=== PATIENT | male | born 1975 | race Caucasian/White ===

== ENCOUNTER 2025-09-29 15:04 | Inpatient (IN) | payer OTHER, SELFPAY ==
--- OUTSIDE RECORDS SUMMARY | 2025-09-28 19:24 | XMS_ITS | Encounter Summary ---
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 15.0 13.5 - 17.5 g/dL 09/28/2025 11:31 PM [facility] Hematocrit 43.6 41.0 - 53.0 % 09/28/2025 11:31 PM [facility] MCV 91.0 80.0 - 100.0 fL 09/28/2025 11:31 PM [facility] MCH 31.3(H) 27.0 - 31.0 pg 09/28/2025 11:31 PM [facility] MCHC 34.4 32.0 - 36.0 g/dL 09/28/2025 11:31 PM [facility] MPV 10.8 8.4 - 12.0 fL 09/28/2025 11:31 PM [facility] RDW-CV 13.3 11.5 - 14.5 % 09/28/2025 11:31 PM [facility] PLT 217 150 - 450 K/uL 09/28/2025 11:31 PM [facility] Neutrophils 64.0 % 09/28/2025 11:31 PM [facility] Lymphocytes 24.8 % 09/28/2025 11:31 PM [facility] Monocytes 6.4 % 09/28/2025 11:31 PM [facility] Eosinophils 3.6 % 09/28/2025 11:31 PM [facility] Basophils 0.7 % 09/28/2025 11:31 PM [facility] Imm Grans 0.5 % 09/28/2025 11:31 PM [facility] NRBC 0.0 <=0.0 /100 WBCs 09/28/2025 11:31 PM [facility] Absolute Neutrophils 7.57 1.92 - 7.60 K/uL 09/28/2025 11:31 PM [facility] Absolute Lymphocytes 2.93 0.72 - 4.10 K/uL 09/28/2025 11:31 PM [facility] Absolute Monocytes 0.75 0.16 - 1.10 K/uL 09/28/2025 11:31 PM [facility] Absolute Eosinophils 0.42 0.00 - 0.50 K/uL 09/28/2025 11:31 PM [facility] Absolute Basophils 0.08 0.00 - 0.15 K/uL 09/28/2025 11:31 PM [facility] Absolute Imm Grans 0.06 0.00 - 0.09 K/uL 09/28/2025 11:31 PM [facility] Absolute NRBC 0.00 <=0.00 K cells/uL 09/28/2025 11:31 PM [facility] Absolute Neutrophils 7.57 1.92 - 7.60 K/uL 09/28/2025 11:31 PM [facility] Comment:Automated cell count . Manual ANC may differ if performed. Diff Type Auto 09/28/2025 11:31 PM [facility] Blood (Blood) 09/28/2025 11: 07 PM EST 09/28/2025 11:13 PM EST us Filipe Scott MD LAB BLOOD BKR ORDERABLES Final Result Performing Organization Address [facility] Co de Phone Number [address] [address] * (ABNORMAL) Salicylates (09/28/2025 11:07 PM EST) Salicylates <0.3(L) 10.0 - 25.0 mg/dL 09/28/2025 11:55 PM EST [facility] Blood (Blood) 09/28/2025 11: 07 PM EST 09/28/2025 11:13 PM EST us Filipe Scott MD LAB BLOOD BKR ORDERABLES Final Result Performing Organization Address [facility] Co de Phone Number [address] [address] * Acetaminophen Level (09/28/2025 11:07 PM EST) Acetaminophen 7.9 <=25.0 ug/mL 09/28/2025 11:44 PM EST [facility] Blood (Blood) 09/28/2025 11: 07 PM EST 09/28/2025 11:13 PM EST us Filipe Scott MD LAB BLOOD BKR ORDERABLES Final Result Performing Organization Address [facility] Co de Phone Number [address] [address] * Ethanol, Blood (09/28/2025 11:07 PM EST) Ethanol <10 Negative; <11 mg/dL 09/28/2025 11:44 PM EST [facility] Blood (Blood) 09/28/2025 11: 07 PM EST 09/28/2025 11:13 PM EST us Filipe Scott MD LAB BLOOD BKR ORDERABLES Final Result [address] [address] * Magnesium (09/28/2025 11:07 PM EST) Magnesium 2.2 1.7 - 2.6 mg/dL 09/28/2025 11:44 PM [facility] Blood (Blood) 09/28/2025 11: 07 PM EST 09/28/2025 11:13 PM EST Filipe Scott MD LAB BLOOD BKR ORDERABLES Final Result Performing Organization Address City/[facility]/ZIP Co de Phone Number [address] [address] * Hepatic Panel (LFTs) (09/28/2025 11:07 PM EST) AST 17 <40 U/L 09/28/2025 11:44 PM [facility] ALT 23 <50 U/L 09/28/2025 11:44 PM [facility] Alkaline Phosphatase 93 40 - 130 U/L 09/28/2025 11:44 PM [facility] Bilirubin, Total 0.5 0.0 - 1.2 mg/dL 09/28/2025 11:44 PM [facility] Bilirubin, Direct 0.1 0.0 - 0.3 mg/dL 09/28/2025 11:44 PM [facility] Total Protein 7.2 6.4 - 8.3 g/dL 09/28/2025 11:44 PM [facility] Albumin 4.1 3.5 - 5.2 g/dL 09/28/2025 11:44 PM [facility] Globulin 3.1 1.9 - 4.1 g/dL 09/28/2025 11:44 PM [facility] Blood (Blood) 09/28/2025 11: 07 PM EST 09/28/2025 11:13 PM EST Filipe Scott MD LAB BLOOD BKR ORDERABLES Final Result [address] [address] * (ABNORMAL) Basic Metabolic Panel (BMP) (09/28/2025 11:07 PM EST) Pathologist [facility] Sodium 138 136 - 145 mmol/L 09/28/2025 11:44 PM [facility] Potassium 3.8 3.4 - 5.1 mmol/L 09/28/2025 11:44 PM [facility] Chloride 103 98 - 107 mmol/L 09/28/2025 11:44 PM [facility] CO2 25 20 - 31 mmol/L 09/28/2025 11:44 PM [facility] Anion Gap 10 3 - 17 mmol/L 09/28/2025 11:44 PM [facility] BUN 12 6 - 23 mg/dL 09/28/2025 11:44 PM [facility] Creatinine 0.70 0.60 - 1.30 mg/dL 09/28/2025 11:44 PM [facility] eGFR 113 >59 mL/min/1.7 3m2 09/28/2025 11:44 PM [facility] Comment:Estimated glomerular filtration rate calculated using the CKD-EPI refit equation. Glucose 110(H) 70 - 99 mg/dL 09/28/2025 11:44 PM [facility] Calcium 9.3 8.5 - 10.5 mg/dL 09/28/2025 11:44 PM [facility] Blood (Blood) 09/28/2025 11: 07 PM EST 09/28/2025 11:13 PM EST Filipe Scott MD LAB BLOOD BKR ORDERABLES Final Result [address] [address] * ECG 12-LEAD (09/28/2025 9:26 PM EST) Ventricular Rate EKG/MIN 57 BPM [facility] Atrial Rate 57 BPM [facility] CO Interval 160 ms [facility] QRS Duration 92 ms [facility] QT Interval 454 ms [facility] QTC Interval 441 ms [facility] P [place] 50 degrees [facility] R Wave [place] 58 degrees [facility] T Wave [place] 45 degrees [facility] 09/28/2025 9:26 PM EST 09/29/2025 10:06 AM EST Narrative [facility] - 09/29/2025 10:06 AM EST Sinus bradycardia with marked sinus arrhythmia Otherwise normal ECG No previous ECGs available Confirmed by Tuan Araya ([id number]) on 09/29/2025 10:06:38 AM us Filipe Scott MD ECG ORDERABLES Final Result [facility] documented in this encounter Visit Diagnoses Diagnosis Suicidal ideation- Primary Depression, unspecified depression type Suicidal ideation Anxiety Anxiety state, unspecified Other headache syndrome documented in this encounter Admitting Diagnoses Diagnosis Suicidal ideation documented in this encounter Administered Medications Inactive Administered Medications - up to 3 most recent administrations Medication Order MAR Action Action Date Dose Rate Site acetaminophen (TYLENOL) tablet 975 mg 975 mg, Oral, Once, On 09/28/25 at 2130, For 1 dose Given 09/28/2025 9:23 PM EST 975 mg ibuprofen (ADVIL,MOTRIN) tablet 600 mg 600 mg, Oral, Once, On 09/28/25 at 2130, For 1 dose Given 09/28/2025 9:23 PM EST 600 mg LORazepam (ATIVAN) tablet 1 mg 1 mg, Oral, Once, On 09/28/25 at 2130, For 1 dose Given 09/28/2025 9:23 PM EST 1 mg documented in this encounter Active and Recently Administered Medications Times are shown in EST. Scheduled Medication Order 09/27/2025 09/28/2025 09/29/2025 acetaminophen (TYLENOL) tablet 975 mg (COMPLETED) 975 mg, Oral, Once, On 09/28/25 at 2130, For 1 dose 2122 (Given - Provider: Anyi Darby RN) ibuprofen (ADVIL,MOTRIN) tablet 600 mg (COMPLETED) 600 mg, Oral, Once, On 09/28/25 at 2130, For 1 dose 2122 (Given - Provider: Anyi Darby RN) LORazepam (ATIVAN) tablet 1 mg (COMPLETED) 1 mg, Oral, Once, On 09/28/25 at 2130, For 1 dose 2122 (Given - Provider: Anyi Darby RN) documented in this encounter Care Teams Deputy [employer] Relationship Specialty Start Date End Date Pcp, Unknown PCP - General 09/28/25 documented as of this encounter Additional Source Comments The information contained in this document represents components of the legal health record. It is not the complete legal health record.[facility]
[2025-09-29 15:26] VITALS: BP 167/97; PULSE 56; RESP 16; TEMP 36.6; O2SAT 96
[2025-09-29 16:34] VITALS: BMI 41.7
--- OUTSIDE RECORDS SUMMARY | 2025-09-29 17:16 | XMS_ITS | Clinical Summary ---
Author Organization [facility] it Address [address] [place] [address] Care Team Providers Care Alley Worker Name Role Phone Unavailable Primary Care Provider Unavailabl e Surgical History Surgery Date Site/Laterality Comments CIRCUMCISION, PRIMARY PROCEDURE: HISTORICAL CIRCUMCISION HIP ARTHROPLASTY 02/01 Right PROCEDURE: HISTORICAL HIP REPLACEMENT Medical History Medical History Date Comments Esophageal reflux DX:Esophageal reflux Family History Medical History Relation Name Comments Asthma Daughter 1 Asthma Daughter 2 Cataracts Mother Diabetes Mother Hypertension Mother Blindness Neg Hx Coronary artery disease Neg Hx Glaucoma Neg Hx Macular degeneration Neg Hx Other cancer Neg Hx Strabismus Neg Hx Relation Name Status Comments Daughter 1 Daughter 2 Mother Social History Tobacco Use Types Packs/Day Years Used Date Smoking Tobacco: Former Cigarettes Alcohol Use Standard Drinks/Week Comments No 0 (1 standard drink = 0.6 oz pur e alcohol) Sex and Gender Information Value Date Recorded Sex Assigned at Not on file Legal Sex Male 11:12 PM EST Gender Identity Not on file Sexual Orientation Not on file Obstetrics History Plan of Treatment Health Maintenance Due Date Last Done Comments Hepatitis B Vaccines (3 of 3 - 19+ 3-dose series) 01/07/2016 08/11/2015, 07/07/2015 Depression Screening 11/20/2024 DTaP,Tdap,and Td Vaccines (2 - Td or Tdap) 01/16/2025 01/16/2015 COVID-19 Vaccine ( - 2024-2 6 season) 2025 Influenza Vaccine (#1) 2025 09/24/2015 RSV Immunization Adult Patients (1 - 1-dose 75+ series) 2051 MMR Vaccines Aged Out 08/11/2015, 07/07/2015 No longer eligible based on patient's age to complete this topic HIB Vaccines Aged Out No longer eligi ble based on patient's age to complete this topic HPV Vaccines Aged Out No longer eligi ble based on patient's age to complete this topic Hepatitis A Vaccines Aged Out No long er eligible based on patient's age to complete this topic IPV Vaccines Aged Out No longer eligi ble based on patient's age to complete this topic Meningococcal ACWY Vaccine Aged Out N o longer eligible based on patient's age to complete this topic Meningococcal B Vaccine Aged Out No l onger eligible based on patient's age to complete this topic Pneumococcal Vaccine: Pediatrics (0 to 5 Years) and At-Risk Patients (6 to 49 Years) Aged Out No longer eligible b ased on patient's age to complete this topic RSV Immunization Patients Under 20 months Aged Out No longer eligible b ased on patient's age to complete this topic Varicella Vaccines Aged Out No longer eligible based on patient's age to complete this topic
--- OUTSIDE RECORDS SUMMARY | 2025-09-29 17:16 | XMS_ITS | Clinical Summary ---
Author Organization [facility] Address [address] [place] [phone] Phone Care Team Providers Care Application Architect Name Role Phone Pcp, Unknown Primary Care Provider Unavailabl e Allergies No known active allergies Medications No known medications Active Problems Problem Noted Date Diagnosed Date Suicidal ideation 09/28/2025 Encounters Date Type Department Care Team Description 09/28/2025 7:24 PM EST - 09/29/2025 2:40 PM EST Hospital Encounter [facility] [address] [place] [address] Filipe Scott MD Savage, Justin G, Gregory Acosta MD Discharge Disposition: Another Health Care Institution Not Defined from Last 3 Months Social History Tobacco Use Types Packs/Day Years [...] Orientation Straight 09/28/2025 10 :28 PM EST Last Filed Vital Signs Vital Sign Reading [...] Mass Index 39.87 09/28/2025 5:55 PM EST Plan of Treatment Health Maintenance Due Date Last Done Comments DEPRESSION SCREENING 1988 SMOKING Hx and SMOKELESS TOBACCO SCREENING 1989 HEPATITIS C SCREENING 1994 HIV ONE-TIME SCREENING (18-6 5 YEARS) 1994 COLOGUARD 2021 COLONOSCOPY 2021 COLORECTAL CANCER SCREENING 2021 FIT TEST 2021 FOBT 2021 SIGMOIDOSCOPY 2021 VIRTUAL COLONOSCOPY 2021 Adult Td,Tdap Booster 01/16/2025 01/16/2015 INFLUENZA VACCINE (#1) 2025 COVID-19 VACCINE ( - 2024-2 6 season) 2025 SCREENING FOR DIABETES 09/28/2028 , 06/20/2025 LIPID PANEL 06/20/2030 06/20/2025, 06/20/2025 HEPATITIS A VACCINES Aged Out No long er eligible based on patient's age to complete this topic HIB VACCINES Aged Out No longer eligi ble based on patient's age to complete this topic IPV VACCINES Aged Out No longer eligi ble based on patient's age to complete this topic MENINGOCOCCAL VACCINES (ACWY) Aged Out No longer eligible based on patient's age to complete this topic MENINGOCOCCAL VACCINES (B) Aged Out N o longer eligible based on patient's age to complete this topic PNEUMOCOCCAL VACCINES (0-49 years) Aged Out No longer eligible b ased on patient's age to complete this topic Medical Devices Not on file Procedures Procedure Name Priority Date/Time Associated Diagnosis Comments TOXICOLOGY SCREEN, URINE STAT 09/29/2025 11:35 AM EST CBC AND DIFFERENTIAL STAT 09/28/2025 11:07 PM EST SALICYLATES STAT 09/28/2025 11:07 PM EST ACETAMINOPHEN LEVEL STAT 09/28/2025 1 1:07 PM EST ETHANOL, BLOOD STAT 09/28/2025 11:07 PM EST MAGNESIUM STAT 09/28/2025 11:07 PM EST LFTS (HEPATIC PANEL) STAT 09/28/2025 11:07 PM EST BASIC METABOLIC PANEL (BMP) STAT 09/28/2025 11:07 PM EST CBC AND DIFFERENTIAL STAT 09/28/2025 11:07 PM EST ECG 12-LEAD STAT 09/28/2025 9:26 PM EST from Last 3 Months Results * (ABNORMAL) Toxicology Screen, Urine (09/29/2025 11:35 AM EST) Amphetamines, Urine Negative Negative 09/29/2025 1:30 PM EST [facility] Benzodiazepin e, Urine Negative Negative 09/29/2025 1:30 PM EST [facility] Cocaine Metabolite, Urine Positive(A) Negative 09/29/2025 1:30 PM EST [facility] Opiates, Urine Negative Negative 09/29/2025 1:30 PM EST [facility] Oxycodone, Urine Negative Negative 09/29/2025 1:30 PM [facility] Fentanyl, Urine Negative Negative 09/29/2025 1:30 PM [facility] Creatinine, Urine 55 20 - 300 mg/dL 09/29/2025 1:30 PM [facility] Urine (Urine, Voided) Non-Blood Collection / Unknown 09/29/2025 11:35 AM EST 09/29/2025 11:40 AM EST Narrative [facility] - 09/29/2025 1:30 PM EST This screening test was performed by immunoassay methodology, which may occasionally yield false-negative or false-positive results. Confirmatory testing can be requested if a definitive result is needed. Results are to be used only for medical (ie, treatment) purposes. Unconfirmed screening results must not be used for non-medical purposes (eg, employment testing). Filipe Scott MD LAB URINE ORDERABLES Final Resu lt Performing Organization Address [facility]/ZIP Co de Phone Number [address] [address] * Ethanol, Blood (09/28/2025 11:07 PM EST) Ethanol <10 Negative; <11 mg/dL 09/28/2025 11:44 PM [facility] Blood (Blood) 09/28/2025 11: 07 PM EST 09/28/2025 11:13 PM EST Filipe Scott MD LAB BLOOD BKR ORDERABLES Final Result Performing Organization Address City/[facility]/ZIP Co de Phone Number [address] [address] * (ABNORMAL) CBC and Differential (09/28/2025 11:07 PM EST) WBC 11.81(H) 4.00 - 11.00 K/uL 09/28/2025 11:31 PM [facility] RBC 4.79 4.50 - 5.90 M/uL 09/28/2025 11:31 PM [facility] Hemoglobin 15.0 13.5 - 17.5 g/dL 09/28/2025 11:31 PM [facility] Hematocrit 43.6 41.0 - 53.0 % 09/28/2025 11:31 PM [facility] MCV 91.0 80.0 - 100.0 fL 09/28/2025 11:31 PM [facility] MCH 31.3(H) 27.0 - 31.0 pg 09/28/2025 11:31 PM [facility] MCHC 34.4 32.0 - 36.0 g/dL 09/28/2025 11:31 PM [facility] MPV 10.8 8.4 - 12.0 fL 09/28/2025 11:31 PM [facility] RDW-CV 13.3 11.5 - 14.5 % 09/28/2025 11:31 PM [facility] PLT 217 150 - 450 K/uL 09/28/2025 11:31 PM [facility] Neutrophils 64.0 % 09/28/2025 11:31 PM [facility] Lymphocytes 24.8 % 09/28/2025 11:31 PM [facility] Monocytes 6.4 % 09/28/2025 11:31 PM [facility] Eosinophils 3.6 % 09/28/2025 11:31 PM [facility] Basophils 0.7 % 09/28/2025 11:31 PM [facility] Imm Grans 0.5 % 09/28/2025 11:31 PM [facility] NRBC 0.0 <=0.0 /100 WBCs 09/28/2025 11:31 PM [facility] Absolute Neutrophils 7.57 1.92 - 7.60 K/uL 09/28/2025 11:31 PM [facility] Absolute Lymphocytes 2.93 0.72 - 4.10 K/uL 09/28/2025 11:31 PM [facility] Absolute Monocytes 0.75 0.16 - 1.10 K/uL 09/28/2025 11:31 PM [facility] Absolute Eosinophils 0.42 0.00 - 0.50 K/uL 09/28/2025 11:31 PM [facility] Absolute Basophils 0.08 0.00 - 0.15 K/uL 09/28/2025 11:31 PM [facility] Absolute Imm Grans 0.06 0.00 - 0.09 K/uL 09/28/2025 11:31 PM [facility] Absolute NRBC 0.00 <=0.00 K cells/uL 09/28/2025 11:31 PM [facility] Absolute Neutrophils 7.57 1.92 - 7.60 K/uL 09/28/2025 11:31 PM [facility] Comment:Automated cell count . Manual ANC may differ if performed. Diff Type Auto 09/28/2025 11:31 PM [facility] Blood (Blood) 09/28/2025 11: 07 PM EST 09/28/2025 11:13 PM EST us Filipe Scott MD LAB BLOOD BKR ORDERABLES Final Result [address] [address] * Hepatic Panel (LFTs) (09/28/2025 11:07 PM EST) AST 17 <40 U/L 09/28/2025 11:44 PM [facility] ALT 23 <50 U/L 09/28/2025 11:44 PM [facility] Alkaline Phosphatase 93 40 - 130 U/L 09/28/2025 11:44 PM [facility] Bilirubin, Total 0.5 0.0 - 1.2 mg/dL 09/28/2025 11:44 PM [facility] Bilirubin, Direct 0.1 0.0 - 0.3 mg/dL 09/28/2025 11:44 PM [facility] Total Protein 7.2 6.4 - 8.3 g/dL 09/28/2025 11:44 PM [facility] Albumin 4.1 3.5 - 5.2 g/dL 09/28/2025 11:44 PM [facility] Globulin 3.1 1.9 - 4.1 g/dL 09/28/2025 11:44 PM [facility] Blood (Blood) 09/28/2025 11: 07 PM EST 09/28/2025 11:13 PM EST us Filipe Scott MD LAB BLOOD BKR ORDERABLES Final Result Performing Organization Address [facility]/ZIP Co de Phone Number [address] [address] * Magnesium (09/28/2025 11:07 PM EST) Magnesium 2.2 1.7 - 2.6 mg/dL 09/28/2025 11:44 PM EST [facility] Blood (Blood) 09/28/2025 11: 07 PM EST 09/28/2025 11:13 PM EST us Filipe Scott MD LAB BLOOD BKR ORDERABLES Final Result Performing Organization Address [facility] Co de Phone Number [address] [address] * Acetaminophen Level (09/28/2025 11:07 PM EST) Acetaminophen 7.9 <=25.0 ug/mL 09/28/2025 11:44 PM EST [facility] Blood (Blood) 09/28/2025 11: 07 PM EST 09/28/2025 11:13 PM EST us Filipe Scott MD LAB BLOOD BKR ORDERABLES Final Result Performing Organization Address [facility] Co de Phone Number [address] [address] * (ABNORMAL) Salicylates (09/28/2025 11:07 PM EST) Salicylates <0.3(L) 10.0 - 25.0 mg/dL 09/28/2025 11:55 PM EST [facility] Blood (Blood) 09/28/2025 11: 07 PM EST 09/28/2025 11:13 PM EST Filipe Scott MD LAB BLOOD BKR ORDERABLES Final Result Performing Organization Address City/[facility]/ZIP Co de Phone Number [address] [address] * (ABNORMAL) Basic Metabolic Panel (BMP) (09/28/2025 11:07 PM EST) Sodium 138 136 - 145 mmol/L 09/28/2025 11:44 PM [facility] Potassium 3.8 3.4 - 5.1 mmol/L 09/28/2025 11:44 PM [facility] Chloride 103 98 - 107 mmol/L 09/28/2025 11:44 PM [facility] CO2 25 20 - 31 mmol/L 09/28/2025 11:44 PM [facility] Anion Gap 10 3 - 17 mmol/L 09/28/2025 11:44 PM [facility] BUN 12 6 - 23 mg/dL 09/28/2025 11:44 PM [facility] Creatinine 0.70 0.60 - 1.30 mg/dL 09/28/2025 11:44 PM [facility] eGFR 113 >59 mL/min/1.7 3m2 09/28/2025 11:44 PM [facility] Comment:Estimated glomerular filtration rate calculated using the CKD-EPI refit equation. Glucose 110(H) 70 - 99 mg/dL 09/28/2025 11:44 PM [facility] Calcium 9.3 8.5 - 10.5 mg/dL 09/28/2025 11:44 PM [facility] Blood (Blood) 09/28/2025 11: 07 PM EST 09/28/2025 11:13 PM EST Filipe Scott MD LAB BLOOD BKR ORDERABLES Final Result Performing Organization Address City/[facility]/ZIP Co de Phone Number [address] [address] * ECG 12-LEAD (09/28/2025 9:26 PM EST) Ventricular Rate EKG/MIN 57 BPM [facility] Atrial Rate 57 BPM [facility] MA Interval 160 ms [facility] QRS Duration 92 ms [facility] QT Interval 454 ms [facility] QTC Interval 441 ms [facility] P [place] 50 degrees [facility] R Wave [place] 58 degrees [facility] T Wave [place] 45 degrees [facility] 09/28/2025 9:26 PM EST 09/29/2025 10:06 AM EST Narrative [facility] - 09/29/2025 10:06 AM EST Sinus bradycardia with marked sinus arrhythmia Otherwise normal ECG No previous ECGs available Confirmed by Tuan Araya ([id number]) on 09/29/2025 10:06:38 AM us Filipe Scott MD ECG ORDERABLES Final Result [facility] from Last 3 Months Insurance [employer] NON NSPG PCP [facility] Address[facility] [address] [place] [address] [employer] NON NSPG PCP [employer] [facility] [employer] NON NSPG PCP [employer] [facility] [employer] NON NSPG PCP S[employer] [facility] [employer] NON NSPG PCP [facility] [employer] [facility] [address] [place], [place] [address]ENSE NON NSPG PCP [facility] [employer] Care Teams Application Architect Relationship Specialty Start Date End Date Pcp, Unknown PCP - General 11/9/25 Additional Source Comments The information contained in this document represents components of the legal health record. It is not the complete legal health record.[facility]
--- OUTSIDE RECORDS SUMMARY | 2025-09-29 17:16 | XMS_ITS | Clinical Summary ---
Author Organization [facility] Address [address] [place] [address] Care Team Providers Care Service Desk Agent Name Role Phone Unavailable Primary Care Provider Unavailabl e Source Comments PLEASE NOTE, if this patient is a minor, it may be UNLAWFUL to discuss sensitive information that is contained in these records (such as FAMILY PLANNING, MENTAL HEALTH or SUBSTANCE ABUSE) with the minor patient's parent or other person without the patient's specific authorization.[facility] Allergies No known active allergies Medications amoxicillin (AMOXIL) 500 mg tabletIndications :History of total hip replacement, right Take 4 Tablets by mouth Once PRN for other reason (dental prophylaxix) for up to 1 dose. 4 Tablet 5 Active lisinopriL 5 mg tabletIndications :Primary hypertension Take 1 Tablet by mouth once daily. 90 Tablet 5 Active buPROPion HCL (WELLBUTRIN XL) 300 mg 24 hr tabletIndications :Anxiety and depression Take 1 Tablet by mouth every morning. 30 Tablet 5 Active FLUoxetine (PROZAC) 40 mg capsuleIndication s:Anxiety and depression Take 1 Capsule by mouth once daily. 30 Capsule 5 Active traZODone (DESYREL) 150 mg tabletIndications :Anxiety and depression Take 1 Tablet by mouth nightly at bedtime. 30 Tablet 5 Active blood pressure monitorIndication s:Primary hypertension Check BP daily as needed. Lifetime need. Dx I10.0. 1 Kit 5 Active Active Problems Problem Noted Date Diagnosed Date Anxiety and depression 06/17/2025 History of total hip replacement, right 06/17/20 25 Primary hypertension 06/17/2025 Social History Tobacco Use Types Packs/Day Years Used Date Smoking Tobacco: Every Day Cigarettes Passive Smoke Exposure: Past Smokeless Tobacco: Never Tobacco Cessation:Ready to Q uit: Not Asked Comments:2 cig/week Alcohol Use Standard Drinks/Week Comments Yes 0 (1 standard drink = 0.6 oz pur e alcohol) occsional Sex and Gender Information Value Date Recorded Sex Assigned at Male 02/19/2025 9:30 AM PDT Legal Sex Male 8:15 AM PDT Gender Identity Male 02/19/2025 9:30 AM PDT Sexual Orientation Straight 02/19/2025 9: 30 AM PDT Last Filed Vital Signs Vital Sign Reading Time Taken Comments Blood Pressure 154/100 06/17/2025 9:47 AM EDT Pulse 71 06/17/2025 9:47 AM EDT Temperature 36.9 C (98.5 F) 06/17/2025 9:47 AM EDT Respiratory Rate 18 06/17/2025 9:47 AM EDT Oxygen Saturation 95% 06/17/2025 9:47 AM EDT Inhaled Oxygen Concentration - - Weight 130 kg (286 lb 9.6 oz) 06/17/2025 9:47 AM EDT Height 175.3 cm (5' 9 ) 06/17/2025 9:47 AM EDT Body Mass Index 42.32 06/17/2025 9:47 AM EDT Plan of Treatment Upcoming Encounters Date Type Department Care Team (Late st Contact Info) Description 10/22/2025 2:20 PM EST Office Visit [facility] [address] [place] [address] Jen Skinner, RHD [address] [place] [address] Health Maintenance Due Date Last Done Comments Dental Perio Charting 1976 Dental Prophy 1976 Hepatitis C Screening 1976 HIV Screening 1991 Imm-Pneumococcal (2 of 2 - PCV) 04/22/2012 1 Imm-Hepatitis B (3 of 3 - 19 + 3-dose series) 01/07/2016 08/11/2015, 07/07/2015 CT Colonography 2021 Colonoscopy 2021 Colorectal Cancer Screening 2021 FIT/gFOBT 2021 Fecal DNA 2021 Flexible Sigmoidoscopy 2021 Imm-DTaP/Tdap/Td (3 - Td or Tdap) 01/16/2025 015, 12/15/2011 [id number] (3 - season) 2025 021, 02/24/2021 Imm-Influenza (#1) 2025 09/27/2022, 1 , 09/24/2015, Additional history exists Depression Monitoring 09/17/2025 06/17/2025 Dental BW 04/11/2026 04/09/2025 Dental Examination 04/11/2026 04/09/2025 Anxiety Screening 06/17/2026 06/17/2025 Tobacco Cessation Counseling (#1) 06/17/2026 Diabetes Screening 06/20/2028 06/20/2025, 06/20/2025 Lipid Screening 06/20/2028 06/20/2025 Dental FMX/Pano 04/11/2030 04/09/2025 Imm-RSV (adult) (1 - 1-dose 75+ series) 2051 Alcohol and Drug Screen Completed 06/17/2025 Procedures Procedure Name Priority Date/Time Associated Diagnosis Comments OTHER ORDERS SCANNED DOCUMENT 06/30/2025 3:00 AM EDT HEMOGLOBIN GLYCOSYLATED A1C Routine 06/20/2025 9:41 AM EDT History of total hip replacement, right Primary hypertension Anxiety and depression LIPID PANEL Routine 06/20/2025 9:41 AM EDT INTRAORAL - COMP SERIES OF RADIOGRAPHIC IMAGES Routine 04/09/2025 10:00 AM EDT Retained tooth root Abfraction Caries Encounter for dental examination COMP ORAL EVALUATION - NEW/ESTABLISHED PATIENT Routine 04/09/2025 10:00 AM EDT Caries Encounter for dental examination from Last 3 Months or Most Recently Relevant to Health Maintenance Results * OTHER ORDERS SCANNED DOCUMENT (06/30/2025 3:00 AM EDT) 06/30/2025 3:00 AM EDT Zac Ledezma [facility] SCAN OTHER ORDERS Final R esult * HEMOGLOBIN GLYCOSYLATED A1C Routine (06/20/2025 9:41 AM EDT) Pathologist [facility] HEMOGLOBIN A1C 5.4 <5.7 % 06/21/2025 3:04 AM EDT [facility] Blood Blood / Unknown 06/20/2025 9 :41 AM EDT 06/21/2025 2:00 AM EDT Narrative paOnde [facility] - 06/21/2025 3:20 AM EDT For the purpose of screening for the presence of diabetes: . <5.7% Consistent with the absence of diabetes 5.7-6.4% Consistent with increased risk for diabetes (prediabetes) > or =6.5% Consistent with diabetes . This assay result is consistent with a decreased risk of diabetes. . Currently, no consensus exists regarding use of hemoglobin A1c for diagnosis of diabetes in children. . According to [place] Diabetes Association (ADA) guidelines, hemoglobin A1c <7.0% represents optimal control in non- diabetic patients. Different metrics may apply to specific patient populations. Standards of Medical Care in Diabetes(ADA). . Zac Ledezma [facility] LAB - BLOOD DRAW Final Re sult [facility] [address] [place] [address], [facility] [address] [address] * (ABNORMAL) LIPID PANEL Routine (06/20/2025 9:41 AM EDT) [facility] CHOLESTEROL, TOTAL 201(H) <200 mg/dL 06/21/2025 4:19 AM EDT [facility] HDL CHOLESTEROL 52 > OR = 40 mg/dL 06/21/2025 4:19 AM EDT [facility] TRIGLYCERIDES 114 <150 mg/dL 06/21/2025 4:19 AM EDT [facility] LDL-CHOLESTEROL 127(H) mg/dL (calc) 06/21/2025 4:19 AM EDT [facility] CHOL/HDLC RATIO 3.9 <5.0 (calc) 06/21/2025 4:19 AM EDT [facility] NON-HDL CHOLESTEROL 149(H) <130 mg/dL (calc) 06/21/2025 4:19 AM EDT [facility] 06/20/2025 9:41 AM EDT 06/21/2025 2:13 AM EDT Narrative [facility] - 06/21/2025 4:23 AM EDT Reference range: <100 . Desirable range <100 mg/dL for primary prevention; <70 mg/dL for patients with CHD or diabetic patients with > or = 2 CHD risk factors. . LDL-C is now calculated using the Josefina calculation, which is a validated novel method providing better accuracy than the Friedewald equation in the estimation of LDL-C. Kale SS et al. LLOYD. 2013;310(19): 9915-0401 (http://education.[employer]/faq/QDM453) For patients with diabetes plus 1 major ASCVD risk factor, treating to a non-HDL-C goal of <100 mg/dL (LDL-C of <70 mg/dL) is considered a therapeutic option. Nasimchante Ledezma [facility] LAB - BLOOD DRAW Final Re sult [facility] [address] [address], [facility] [address] [address] from Last 3 Months or Most Recently Relevant to Health Maintenance Insurance [employer] [facility] Member Subscriber Plan / Payer (Ef fective 2025-Present) Name:Zia Freeman Relation to Subscriber:Self Name:Zia Freemna Payer ID:[id number] Group ID:Not on file Type:Indemnity Address: [facility] [address] [place] [address] [facility]
--- OUTSIDE RECORDS SUMMARY | 2025-09-29 17:17 | XMS_ITS | Data Portability ---
Author Organization [facility]ELISSA V[facility], [address] Address [address] [place] [address] Assessment No assessment recorded. Plan of Treatment Reminders Order Date Submit Date Provider Last Modified By Organization Details Last Modified Time Details Appointments None record ed. Lab None record ed. Referral None record ed. Procedures None record ed. Surgeries None record ed. Imaging None record ed. Medication Orders None record ed. Patient TargetsNo targets recorded. Patient InstructionsNo instructions recorded. Reason for Referral None Reported. Medical Equipment None Reported. Vitals None Recorded Social History None recorded. Functional Status None recorded. Mental Status None recorded. Family History Nothing Reported. Medical History No medical history recorded. Past Encounters Encounter ID Performer Location Encounter Start Date Encounter Closed Date Diagnosis/Indication Diagnosis SNOMED-CT Code Diagnosis ICD10 Code Diagnosis IMO Codes Diagnosis Note [id number] [address] [place] [address] 07/03/2017 19:33:21 07/03/2017 19:55:33 [id number] [address] [place] [address] 09/10/2018 19:31:01 09/10/2018 19:58:04 Health Concerns Section Related Observation LastModified by Organization Detai ls LastModified Time None Recorded Concern Status LastModified by Organization Details LastModified Time None Recorded Advance Directives Directive None Recorded Payers Insurance Date Sequence Insurance Name Policy Number Policy Vicente Covered Member ID Vicente Member ID Guarantor Name 10/10/2022 1 [place] [facility] [place] [id number] Zia Freeman
--- NOTE | 2025-09-29 17:35 | PC.ADMIT ---
Zia Freeman was admitted to at 1523 from [facility] Emergency Room on a CV for treatment of Depression with suicidal ideation, and recent relapse on cocaine. He is alert and oriented to person and place, with time he was off by 1 day with the date, knowing it was Monday. He is pleasant with staff, cooperative, depressed, has an anxious affect, denied hallucinations, shows no signs of responding to internal stimuli, displays no paranoia, suspiciousness, delusions, or impaired thought processes. He denied thoughts to harm himself or others. His appetite has been adequate and he reports his current documented weight is an increase from his baseline by about 10 pounds. He reports needing medication to sleep. He does not get distracted while answering questions. He reports smoking cigarettes in the past 30 days, and for 20 years he smoked a pack per day. He refused Quitworks and is not interested in nicotine replacement. He has 1-2 alcoholic drinks 2-4 times a month. He also reported a recent binge of cocaine use days ago, daily marijuana use up to admission, and last having alcohol 2 weeks ago. His toxicology screen came back positive for cocaine. He has hypertension with elevated BP on admission. Provider aware. He complains of a chronic cough and itching throat. He is placed on 15 minute safety checks.
[2025-09-29 20:00] VITALS: BP 141/84; PULSE 59; RESP 22; TEMP 36.8; O2SAT 96
[2025-09-29] MEDS: Flu Vacc TS2025-26(6mo up)/PF 0.5 ML SYRINGE IM (20:32)
--- NOTE | 2025-09-29 21:10 | P.CONHOSP_ITS ---
History of Present Illness Data of Consult Service Date: 09/29/25 Requesting physician: Heidy Amador Primary Care Provider: Unknown Physician HPI Reason for consult: medical H&P Patient is a 50-year-old male with a past medical history significant for hypertension, tobacco use disorder, cocaine use marijuana use, transferred [facility] for depression and SI to adult Psychiatry. Hospitalist consultation placed for medical H and P. Medical history and medications reviewed with the patient. He denies any acute complaints including chest pain, shortness of breath, nausea, vomiting, abdominal pain or urinary symptoms including frequency, urgency or dysuria. He reports social occasional alcohol, recent cocaine use and marijuana use. Review of Systems Constitutional: Constitutional: Denies body ache(s), Denies chills, Denies fatigue, Denies fever(s) and Denies headache(s) Eyes: Eyes: Denies change in vision ENT: Denies headache(s), Denies nasal congestion and Denies sore throat Cardiovascular: Cardiovascular: Denies chest pain, Denies rapid heart rate, Denies leg edema, Denies lightheadedness and Denies dyspnea Respiratory: Respiratory: Denies chest congestion, Denies cough, Denies dyspnea and Denies wheezing Gastrointestinal: Gastrointestinal: Denies abdominal pain, Denies diarrhea, Denies nausea and Denies vomiting Genitourinary: Genitourinary: Denies hematuria, Denies dysuria and Denies urinary urgency Musculoskeletal: Musculoskeletal: Denies myalgias Integumentary/Breasts: Skin/Breast: Denies rash Neurologic: Denies headache(s) Psychiatric: Psychiatric: Reports as per HPI Endocrine: Endocrine: Denies fatigue Hematologic/Lymphatic: Hematologic/Lymphatic: Denies easy bleeding Allergic/Immunologic: Allergic/Immunologic: Denies wheezing [facility] Medical History (Updated 09/29/25 @ 21:13 by Jennifer Morrison PA-C) Morbid obesity Tobacco use disorder Cannabis use disorder Cocaine use HTN (hypertension) Functional capacity: independent ambulation Social History Household Members: Spouse and Children Housing: Other Housing Other:: Mobile home. Do you presently have visiting nurse or other home services: No Patient Tobacco Use Status: Current someday Tobacco user Tobacco use type: Cigarette Cigarette Packs Per Day: 1 Cigarettes Per Day: 20.0 Years Smoked: 20 Smoked in Last 30 Days: Yes e-Cigarette/Vaping Use: Never Used Patient Interested in Nicotine Replacement: No Patient Given Instructions on How to Stop Smoking: No Second Hand Smoke Exposure: No Have you been hit, kicked, punched, or otherwise hurt by someone within the past year? If so, by whom?: No Do you feel safe in your current relationship?: Yes Is there a partner from a previous relationship who is making you feel unsafe now?: No Are you made to feel afraid or neglected: No Advance Directives: No Advance Directives Information Provided: Yes Do you have a plan to hurt others: No Plan Recently lost weight without trying: No How much weight loss: Not applicable Eating poorly because of decreased appetite: No Nutrition screen score: 0 Nutrition Risks: Recent weight gain Poor oral hygiene: No Meds Allergies Allergy/AdvReac Type Severity Reaction Status Date / Time No Known Allergies Allergy Verified 09/29/25 15:07 Active Medications: Current Medications Acetaminophen (Acetaminophen 325 Mg Tablet) 650 mg PO Q6H PRN PRN Reason: Headache/Pain, Scale 1-10 Al Hydroxide/Mg Hydroxide (Magnesium Hydrox/Alum Hydrox 30 Ml Oral.Susp) 30 ml PO Q6H PRN PRN Reason: Heartburn/Nausea Bupropion HCl (Bupropion Hcl Xl 150 Mg Tab.Er.24h) 150 mg PO DAILY RUTH Fluoxetine HCl (Fluoxetine Hcl 20 Mg Capsule) 20 mg PO DAILY RUTH Hydroxyzine HCl (Hydroxyzine Hcl 25 Mg Tablet) 25 mg PO Q6H PRN PRN Reason: mild anxiety Lisinopril (Lisinopril 5 Mg Tablet) 5 mg PO DAILY RUTH; Protocol Magnesium Hydroxide (Milk Of Magnesia 30 Ml Oral.Susp) 30 ml PO DAILY PRN PRN Reason: Constipation Nicotine Polacrilex (Nicotine Polacrilex 2 Mg Gum) 4 mg BUCCAL Q2H PRN PRN Reason: Nicotine Cravings Olanzapine (Olanzapine 5 Mg Tablet) 5 mg PO Q4H PRN PRN Reason: agitation Trazodone HCl (Trazodone Hcl 50 Mg Tablet) 50 mg PO BEDTIME MRX1 PRN PRN Reason: Insomnia Trazodone HCl (Trazodone Hcl 50 Mg Tablet) 50 mg PO BEDTIME RUTH Last Admin: 09/29/25 20:32 Dose: 50 mg Home Medications ?Medication ?Instructions ?Recorded ?Confirmed ?Last Taken ?Type bupropion HCl 300 mg 24 hr tablet, 300 mg PO DAILY 09/1309/29/25 Unknown History extended release fluoxetine 40 mg capsule 40 mg PO DAILY 09/29/2509/20 Unknown History lisinopril 5 mg tablet 5 mg PO DAILY 09/29/2509/29 Unknown History trazodone 150 mg tablet 150 mg PO BEDTIME 09/29/25 1 11/29/24 Unknown History Physical Exam Vital Signs and Narrative: Vital Signs: Last Vital Signs Temp 97.9 F 09/29/25 15:26 Pulse 56 09/29/25 15:26 Resp 16 09/29/25 15:26 BP 167/97 H 09/29/25 15:26 Pulse Ox 96 09/29/25 15:26 O2 Del Method Room Air 09/29/25 15:26 BMI result Body Mass Index 41.7 General: AOx3, no acute distress Resp: CTA bilaterally CVS: S1, S2, RRR GI: +BS, NT, no distention Skin: Warm, dry Neuro: Cranial nerves II-XII grossly intact bilaterally. Motor grossly intact bilaterally Extremities: No pitting edema Psych: Appropriate affect Assessment and Plan (1) Medical clearance for psychiatric admission: Status: Acute Plan Patient is a 50-year-old male with a past medical history significant for hypertension, tobacco use disorder, cocaine use marijuana use, transferred [facility] for depression and SI to adult Psychiatry. depression/SI - plan per psych HTN - lisinopril tobacco use disorder - smoking cessation encouraged cocaine/marijuana use - addicition med consult morbid obesity - BMI 41.8 - weight loss encouraged Thank you for allowing me to participate in the pt's care. Signing off. Please contact the medical team if any questions or concerns.
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
[2025-09-30 07:47] VITALS: BP 130/86; PULSE 57; RESP 14; TEMP 36.7; O2SAT 92
--- NOTE | 2025-09-30 08:15 | HO.PM.IMCN ---
History of Present Illness Data of Consult Service Date: 09/30/25 Primary Care Provider: Unknown Physician HPI Reason for consult: Medical H&P 50-year-old male with past medical history of anxiety and depression, cocaine use presented to [facility] with increased depression and anxiety suicidal ideation. Medical eval reveals mild elevation in WBCs, no anemia. No BAL. Hepatic panel within normal limits, no electrolyte imbalances. No evidence of renal injury, [facility] Medical History Morbid obesity Tobacco use disorder Cannabis use disorder Cocaine use HTN (hypertension) Functional capacity: independent ambulation Social History Household Members: Spouse and Children Housing: Other Housing Other:: Mobile home. Do you presently have visiting nurse or other home services: No Patient Tobacco Use Status: Current someday Tobacco user Tobacco use type: Cigarette Cigarette Packs Per Day: 1 Cigarettes Per Day: 20.0 Years Smoked: 20 Smoked in Last 30 Days: Yes e-Cigarette/Vaping Use: Never Used Patient Interested in Nicotine Replacement: No Patient Given Instructions on How to Stop Smoking: No Second Hand Smoke Exposure: No Currently Displaying Signs/Symptoms of Drug Intoxication Withdrawal: No Have you been hit, kicked, punched, or otherwise hurt by someone within the past year? If so, by whom?: No Do you feel safe in your current relationship?: Yes Is there a partner from a previous relationship who is making you feel unsafe now?: No Are you made to feel afraid or neglected: No Advance Directives: No Advance Directives Information Provided: Yes Do you have thoughts of harming others: None Do you have a plan to hurt others: No Plan Recently lost weight without trying: No How much weight loss: Not applicable Eating poorly because of decreased appetite: No Nutrition screen score: 0 Nutrition Risks: Recent weight gain Poor oral hygiene: No Meds Allergies Allergy/AdvReac Type Severity Reaction Status Date / Time No Known Allergies Allergy Verified 09/29/25 15:07 Active Medications: Current Medications Acetaminophen (Acetaminophen 325 Mg Tablet) 650 mg PO Q6H PRN PRN Reason: Headache/Pain, Scale 1-10 Al Hydroxide/Mg Hydroxide (Magnesium Hydrox/Alum Hydrox 30 Ml Oral.Susp) 30 ml PO Q6H PRN PRN Reason: Heartburn/Nausea Bupropion HCl (Bupropion Hcl Xl 150 Mg Tab.Er.24h) 150 mg PO DAILY RUTH Fluoxetine HCl (Fluoxetine Hcl 20 Mg Capsule) 20 mg PO DAILY RUTH Hydroxyzine HCl (Hydroxyzine Hcl 25 Mg Tablet) 25 mg PO Q6H PRN PRN Reason: mild anxiety Lisinopril (Lisinopril 5 Mg Tablet) 5 mg PO DAILY RUTH; Protocol Magnesium Hydroxide (Milk Of Magnesia 30 Ml Oral.Susp) 30 ml PO DAILY PRN PRN Reason: Constipation Nicotine Polacrilex (Nicotine Polacrilex 2 Mg Gum) 4 mg BUCCAL Q2H PRN PRN Reason: Nicotine Cravings Olanzapine (Olanzapine 5 Mg Tablet) 5 mg PO Q4H PRN PRN Reason: agitation Trazodone HCl (Trazodone Hcl 50 Mg Tablet) 50 mg PO BEDTIME MRX1 PRN PRN Reason: Insomnia Trazodone HCl (Trazodone Hcl 50 Mg Tablet) 50 mg PO BEDTIME RUTH Last Admin: 09/29/25 20:32 Dose: 50 mg Home Medications ?Medication ?Instructions ?Recorded ?Confirmed ?Last Taken ?Type bupropion HCl 300 mg 24 hr tablet, 300 mg PO DAILY 09/29/25 09/29/25 Unknown History extended release fluoxetine 40 mg capsule 40 mg PO DAILY 09/29/25 09/29/25 Unknown History lisinopril 5 mg tablet 5 mg PO DAILY 09/29/25 09/29/25 Unknown History trazodone 150 mg tablet 150 mg PO BEDTIME 09/29/25 09/29/25 Unknown History Physical Exam Vital Signs and Narrative: Vital Signs: Last Vital Signs Temp 98.1 F 09/30/25 07:47 Pulse 57 09/30/25 07:47 Resp 14 09/30/25 07:47 BP 130/86 09/30/25 07:47 Pulse Ox 92 09/30/25 07:47 O2 Del Method Room Air 09/30/25 07:47 BMI result Body Mass Index 41.7 Results Labs 09/30/25 08:05
[2025-09-30 08:34] LABS: Albumin Level 4.0 g/dL (3.5-5.0); Alkaline Phosphatase 100 U/L (39-117); Anion Gap 14 (12-20); Aspartate Amino Transferase 27 U/L (5-37); Blood Urea Nitrogen 16 mg/dL (9-16); Calcium 9.4 mg/dL (8.4-10.2); Carbon Dioxide 19 mmol/L (22-29); Chloride 109 mmol/L (96-108); Cholesterol 217 mg/dL (<200); Creatinine Clr Calc Pharmacy 137.7; Estimated Glomerular Filt Rate > 60; HDL Cholesterol 38 mg/dL (>40); Potassium 4.7 mmol/L (3.3-5.1); Sodium 137 mmol/L (135-145); Total Protein 7.6 g/dL (6.5-8.0); Triglycerides 147 mg/dL (<150)
[2025-09-30 08:38] LABS: Hemoglobin A1C 98.2983 umol/L; Total Hemoglobin (HGBA1C) 2863.4306 umol/L
[2025-09-30] MEDS: buPROPion HCl XL 150 MG TAB.ER.24H PO (08:42)
[2025-09-30 08:46] LABS: Alanine Aminotransferase 36 U/L (0-40)
--- NOTE | 2025-09-30 10:25 | HO.PSYCHPN ---
Subjective Subjective Date of Service: 09/30/25 Reason For Visit: Crisis Subjective Notes: Conditional Voluntary Interim History: Active on unit. attending groups. Patient reports feeling anxious and depressed today; pt stated, I'm starting to feel better with being in the hospital and restarting my medications. I feel motivated to get better . denies SI/HI/VH/AH. Continue tx plan. Medication Compliance: Yes Side effects from medications: No Attending Groups: Yes Mental Status Exam Mental Status Exam Narrative: Pt is alert and oriented; behavior is cooperative and calm; dressed in casual attire; mood is described as anxious and depressed ; eye contact appropriate; Speech is normal rate, volume and not pressured; thought process is organized; Thought content is on tx; denies SI/HI/VH/AH. Diagnostics Vital Signs (24Hr): Vital Signs - 24 hr 09/29/25 15:26 09/29/25 20:00 09/30/25 07:47 Temperature 97.9 F 98.2 F 98.1 F Pulse Rate 56 59 57 Respiratory Rate 16 22 H 14 Blood Pressure 167/97 H 141/84 H 130/86 Pulse Oximetry 96 96 92 Oxygen Delivery Method Room Air Room Air Room Air BMI result Body Mass Index 41.7 Labs 09/30/25 08:05 Labs: Laboratory Results - last 48 hr 09/30/25 08:05 Sodium 137 Potassium 4.7 Chloride 109 H Carbon Dioxide 19 L Anion Gap 14 BUN 16 Creatinine 0.86 Estim Creat Clear Calc 137.7 Estimated GFR > 60 Random Glucose 95 Estimat Average Glucose 105 Hemoglobin A1c % 5.3 Calcium 9.4 Total Bilirubin 0.6 AST 27 ALT 36 Alkaline Phosphatase 100 Total Protein 7.6 Albumin 4.0 Triglycerides 147 Cholesterol 217 H LDL Cholesterol, Calc 150 H HDL Cholesterol 38 L Medications Medications Current Medications Acetaminophen (Acetaminophen 325 Mg Tablet) 650 mg PO Q6H PRN PRN Reason: Headache/Pain, Scale 1-10 Al Hydroxide/Mg Hydroxide (Magnesium Hydrox/Alum Hydrox 30 Ml Oral.Susp) 30 ml PO Q6H PRN PRN Reason: Heartburn/Nausea Bupropion HCl (Bupropion Hcl Xl 150 Mg Tab.Er.24h) 150 mg PO DAILY RUTH Last Admin: 09/30/25 08:42 Dose: 150 mg Fluoxetine HCl (Fluoxetine Hcl 20 Mg Capsule) 20 mg PO DAILY RUTH Last Admin: 09/30/25 08:42 Dose: 20 mg Hydroxyzine HCl (Hydroxyzine Hcl 25 Mg Tablet) 25 mg PO Q6H PRN PRN Reason: mild anxiety Lisinopril (Lisinopril 5 Mg Tablet) 5 mg PO DAILY RUTH; Protocol Last Admin: 09/30/25 08:41 Dose: 5 mg Magnesium Hydroxide (Milk Of Magnesia 30 Ml Oral.Susp) 30 ml PO DAILY PRN PRN Reason: Constipation Nicotine Polacrilex (Nicotine Polacrilex 2 Mg Gum) 4 mg BUCCAL Q2H PRN PRN Reason: Nicotine Cravings Olanzapine (Olanzapine 5 Mg Tablet) 5 mg PO Q4H PRN PRN Reason: agitation Trazodone HCl (Trazodone Hcl 50 Mg Tablet) 50 mg PO BEDTIME MRX1 PRN PRN Reason: Insomnia Trazodone HCl (Trazodone Hcl 50 Mg Tablet) 50 mg PO BEDTIME RUTH Last Admin: 09/29/25 20:32 Dose: 50 mg Allergies Allergies Allergy/AdvReac Type Severity Reaction Status Date / Time No Known Allergies Allergy Verified 09/29/25 15:07 Assessment & Plan Assessment & Plan (1) MDD (major depressive disorder), recurrent episode: Status: Acute Code(s): F33.9 - Major depressive disorder, recurrent, unspecified (2) Cocaine use: Status: Acute Code(s): F14.90 - Cocaine use, unspecified, uncomplicated (3) HTN (hypertension): Status: Acute Code(s): I10 - Essential (primary) hypertension (4) Cannabis use disorder: Status: Acute Code(s): F12.90 - Cannabis use, unspecified, uncomplicated (5) Morbid obesity: Status: Acute Code(s): E66.01 - Morbid (severe) obesity due to excess calories Plan patient is a 50 y.o male with hx of HTN, total hip replacement, CURTIS. THC use, MDD and PTSD disorders who presents d/t increased anxiety, depression, and SI. Patient reports has no access to medication for two months- no current OP providers. Therefore above symptoms got worse. Hx of suicide attempts. Formulation/clinical reasoning: Increased in depression/anxiety, SI with plan to harm to self. Hx of OD as suicide attempt. Currently no meds x2, no access to OP psychiatric providers/services. Hx of PTSD, MDD. Given above information, patient would benefit in restrictive environment for own safety, medication management, and refer patient to OP psychiatric services for aftercare. Plan: Patient on 15 minute checks for safety. Admitted to M3. CV. Work with treatment team to do collateral. Refer to patient to ultrasound applications specialist: patient declined. Contact the hospitalist regarding hospitalist consultation on admission: pending 09/29: Restart all home meds at lower dose Wellbutrin Xl 150mg daily anxiety/depression Prozac 20mg daily for depression/anxiety. Trazodone 50mg at HS for insomnia with PRN repeat dose Lisinopril 5mg daily in the morning for HTN 09/30:Active on unit. attending groups. Patient reports feeling anxious and depressed today; pt stated, I'm starting to feel better with being in the hospital and restarting my medications. I feel motivated to get better . denies SI/HI/VH/AH. Continue tx plan. Patient educated on: diagnosis, medication risk/benefits and therapeutic strategies Reason for continued inpatient stay Substantial Risk for: med/psych decompensation Time Spent With Patient Time: Total time managing care of this patient today _20___ minutes.
--- NOTE | 2025-09-30 15:44 | MHC.RECOVRN ---
Pt is a 50-y/o single male with a history of anxiety and depression w/SI, PTSD, hypertension, and cocaine use disorder who initially presented to the ED for evaluation of worsening depression & anxiety with SI. Pt was assessed by the CARE team and found to meet IPLOC criteria. Subsequently pt was admitted to for treatment. Met with pt in - after receiving an addiction consult to assess for cocaine use disorder and discuss recovery options & supports. Upon approach pt is calm and sitting in common area watching tv w/ peers. Pt oriented & receptive to conversation. Pt reported concern regarding his recurrence of cocaine use after maintaining ~13 years of sustained remission. Patient states the recurrence began about a month ago when he ran out of his psych meds , did not have access to outpatient providers , and his depression/anxiety worsened. He reports using about $20 worth of cocaine daily or every other day, depending on stress levels and mental status for the past month. He described persistent intrusive thoughts and cravings to use, but states work responsibilities and family involvement have been helpful in maintaining abstinence in recent days. Patient denies cocaine use over the last several days and expresses a desire to return to abstinence. Pt denies opioid, benzo, or significant alcohol use. Reports occasional cannabis use which he does not view as problematic at this time. States he may drink socially on occasion but is not concerned about it. Notes that his does not drink or use illicit substances and remains supportive. Pt previously engaged once in substance use tx ~13+ years ago for cocaine use. He has had several inpatient psych admissions in the recent past for depression, anxiety, SI and suicide attempt. Currently pt is denying SI/HI/AH/VH and states he feels stable and safe knowing he is in the hospital receiving treatment. Pt's thought pattern logical and organized. Pt goal-oriented, focused on recovery, and open to treatment recommendations. Discussed various harm reduction strategies including identifying high-risk triggers, urge surfing, and structured delay techniques when cravings arise. Discussed pt's current helpful coping strategies such as keeping busy with daily structure and routine. Reinforced pt's awareness that his HTN & depression places him at high cardiovascular + psychiatric risk with stimulant use, and discussed risk reduction options such as monitoring BP, recognizing warning signs such as chest pressure, palpitations, severe headache, and seeking urgent medical/psych evaluation as needed. Discussed treatment and recovery support options such as recovery coaching, individual therapy, MAT for stimulant use disorder, inpatient tx options (ATS,CSS) outpatient tx options such as IOPs. Pt interested in discussing medication options with the addiction medicine provider to support cravings & mood regulation. ACS team Director Annika Hernandez NP made aware. Pt was provided with written educational materials on stimulant use disorder, harm reduction practices, and local recovery support resources. Pt verbalized understanding and expressed motivation to continue working toward re-establishing abstinence. No further questions or concerns at this time. Pt provided w/ contact info for recovery team should needs arise.
[2025-09-30 20:00] VITALS: BP 140/88; PULSE 70; RESP 16; TEMP 36.2; O2SAT 97
[2025-10-01 07:43] VITALS: BP 121/82; PULSE 63; RESP 18; TEMP 36.7; O2SAT 95
[2025-10-01] MEDS: buPROPion HCl XL 150 MG TAB.ER.24H PO (08:40)
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
[2025-10-01] MEDS: Naloxone HCl Nasal TAKE HOME 4 MG SPRAY 8 MG NOSTRILALT (11:44)
--- NOTE | 2025-10-01 12:33 | MHC.RECOVRN ---
late entry TW met with pt in -1 to offer continued support and education. Pt states he plans to continue his medications upon discharge and to seek therapy/counseling and verbalizes intent to remain connected to providers for continued care. Pt denies the need for medications to treat StUD at this time, because it's out of my system . Pt educated on cravings and coping strategies explored. Provided pt information on the START program, education provided about the current drug supply, and safer use strategies discussed.
== END 2025-10-01 12:04 | disposition home or self-care (01) | DRG 751 ==
PROVIDERS: Admitting Provider Psychiatry & Neurology Psychiatry; Responsible Provider Registered Nurse; Visit Provider Psychiatry & Neurology Psychiatry
DX: F33.9 Major depressive disorder, recurrent, unspecified (principal); R45.851 Suicidal ideations; F17.210 Nicotine dependence, cigarettes, uncomplicated; Z23 Encounter for immunization; Z71.6 Tobacco abuse counseling; F14.90 Cocaine use, unspecified, uncomplicated; F12.90 Cannabis use, unspecified, uncomplicated; I10 Essential (primary) hypertension; E66.01 Morbid (severe) obesity due to excess calories; Z68.41 Body mass index [BMI] 40.0-44.9, adult; Z79.899 Other long term (current) drug therapy
CPT/HCPCS: 36415; 80053; 80061; 83036; 90656

== ENCOUNTER → 2025-09-29 15:04 | Outpatient (BNV) | payer OTHER, SELFPAY | PROVIDERS: Admitting Provider Psychiatry & Neurology Psychiatry; Responsible Provider Registered Nurse; Visit Provider Physician Assistant | DX: Z00.8 Encounter for other general examination (principal) | CPT/HCPCS: 99222 ==

== ENCOUNTER → 2025-09-29 15:04 | Outpatient (BNV) | payer OTHER, SELFPAY | PROVIDERS: Admitting Provider Psychiatry & Neurology Psychiatry; Responsible Provider Registered Nurse; Visit Provider Nurse Practitioner Psychiatric/Mental Health | DX: F33.9 Major depressive disorder, recurrent, unspecified (principal); F14.90 Cocaine use, unspecified, uncomplicated; I10 Essential (primary) hypertension; F12.90 Cannabis use, unspecified, uncomplicated; E66.01 Morbid (severe) obesity due to excess calories | CPT/HCPCS: 90792; 99232 ==